=== PATIENT | female | born 1970 | race Caucasian/White ===

== ENCOUNTER 2017-11-15 11:54 | Emergency (ER) | payer OTHER ==
[2017-11-15 12:52] VITALS: BP 119/70
--- NOTE | 2017-11-15 12:55 | UC ---
FLU HPI - HPI Summary HPI Summary: 47 y/o female presents to the urgent care c/o body aches, sore throat, dry cough since Wednesday11/12/2017. Pt reports sore throat is resolving. However she developed 2 episodes of bile vomiting. Mild TOLEDO, back pain, chills and sweats. On sure of fever. she took Ibuprofen 800mg PO yesterday and her sore throat improved. She has not taking the flu vaccine lately. Pt denies fever, SOB, chest pain, diarrhea, abdominal pain, urinary problems. - History of Current Complaint Chief Complaint: UCGeneralIllness Stated Complaint: ACHY VOMITING BACK/CHEST TIGHTNESS Time Seen by Provider: 11/15/17 12:42 Hx Obtained From: Patient Hx Last Menstrual Period: 08/24/16 ?: No Onset/Duration: Gradual Onset, Lasting Days - 4 days, Still Present, Worse Since - today Severity Currently: Mild Severity Initially: Moderate Pain Intensity: 4 Pain Scale Used: 0-10 Numeric Associated Signs & Symptoms: Positive: Fever, Myalgia, Sore Throat, Nasal Congestion, Headache, Vomiting - Risk Factors Influenza Risk Factors: Negative, Age Under 19 y/o Combined w/skilled nursing ASA Therapy - Allergy/Home Medications Allergies/Adverse Reactions: Allergies Allergy/AdvReac Type Severity Reaction Status Date / Time Vancomycin Allergy Itching Verified 11/15/17 12:44 PMH/Surg Hx/FS Hx/Imm Hx Previously Healthy: Yes Endocrine History: Dyslipidemia Respiratory History: Asthma - controlled - Surgical History Surgical History: Yes Surgery Procedure, Year, and Place: appy. partial hysterectomy - Family History Known Family History: Positive: Hypertension, Diabetes Family History: Dyslipiemia - Social History Alcohol Use: Occasionally Substance Use Type: None Smoking Status (MU): Light Every Day Tobacco Smoker Type: Cigarettes Amount Used/How Often: occasional- none past 5 days Length of Time of Smoking/Using Tobacco: 1/2 PPD Household Exposure Type: Cigarettes - Immunization History Most Recent Influenza Vaccination: not this season Review of Systems Constitutional: Fever, Fatigue, Other - body aches Skin: Negative Eyes: Negative ENT: Sore Throat, Nasal Discharge, Sinus Congestion Respiratory: Cough Cardiovascular: Negative Gastrointestinal: Negative Genitourinary: Negative Motor: Negative Neurovascular: Negative Musculoskeletal: Negative Neurological: Headache Psychological: Negative Is Patient Immunocompromised?: No All Other Systems Reviewed And Are Negative: Yes Physical Exam Triage Information Reviewed: Yes Vital Signs: Initial Vital Signs Temp 98.6 F 11/15/17 12:45 Pulse 82 11/15/17 12:45 Resp 18 11/15/17 12:45 BP 119/70 11/15/17 12:45 Pulse Ox 100 11/15/17 12:45 - Additional Comments VITAL SIGNS: Reviewed. GENERAL: Patient is a well developed and nourished female who is sitting comfortable in the examining table. Patient is not in any acute respiratory distress. HEAD AND FACE: No signs of trauma. No ecchymosis, hematomas or skull depressions. No sinus tenderness. EYES: PERRLA, EOMI x 2, No injected conjunctiva, no nystagmus. No photophobia. EARS: Hearing grossly intact. Ear canals and tympanic membranes are within normal limits. Nose: edematous and erythematous nasal mucosa with clear nasal discharge MOUTH: Positive pharynx with erythema, no exudates, no palatal petechiae. NO B/ L tonsillar enlargement with exudate. Uvula in midline. NECK: Supple, trachea is midline, Positive anterior cervical lymphadenopathy, no JVD, no carotid bruit, no c-spine tenderness, neck with full ROM. No meningeal signs, no Kernig's or brudzinskis signs. CHEST: Symmetric, no tenderness at palpation LUNGS: Clear to auscultation bilaterally. No wheezing or crackles. CVS: Regular rate and rhythm, S1 and S2 present, no murmurs or gallops appreciated. ABDOMEN: Soft, non-tender. No signs of distention. No rebound no guarding, and no masses palpated. Bowel sounds are normal. EXTREMITIES: FROM in all major joints, no edema, no cyanosis or clubbing. NEURO: Alert and oriented x 3. No acute neurological deficits. Speech is normal and follows commands. SKIN: Dry and warm Flu Course/Dx - Course Course Of Treatment: 47 y/o female presents to the urgent care c/o body aches, sore throat, dry cough since Wednesday11/12/2017. Pt reports sore throat is resolving. However she developed 2 episodes of bile vomiting. Mild TOL[place]O, back pain, chills and sweats. On sure of fever. she took Ibuprofen 800mg PO yesterday and her sore throat improved. She has not taking the flu vaccine lately. Pt denies fever, SOB, chest pain, diarrhea, abdominal pain, urinary problems. Hx obtained. Pt with a viral syndrome on examination. Influenza A&B ordered: result: negative. Rx ibuprofen PO ans Sofran PO to alleviates symptoms. Advised on hand washing . Pt advised to rest, increase fluid intake, eat well and avoid strenuous exercise. If symptoms do not improve or worsen advised to return to the urgent care or f/u with her PCP for further evaluation and treatment. Pt understood and agreed with plan of care. - Differential Dx/Diagnosis Differential Diagnosis/HQI/PQRI: Broncholiolitis, Influenza, Pneumonia, Upper Respiratory Infection Provider Diagnoses: 1- viral syndrome. 2- Acute Nausea and vomiting Discharge - Discharge Plan Condition: Stable Disposition: HOME Prescriptions: Ibuprofen TAB* [Motrin TAB* 800 MG] 800 mg PO Q6H PRN #20 tab PRN Reason: Pain Ondansetron ODT TAB* [Zofran 4 MG Odt TAB*] 4 mg PO Q6H PRN #12 tab.odt PRN Reason: Vomiting Patient Education Materials: Acute Nausea and Vomiting (ED), Viral Syndrome (ED ) Forms: *Work Release Referrals: Alyson Lynch MD [Primary Care Provider] - 2 Days Additional Instructions: 1- Please take the Zofran PO if you continue with nausea and vomiting. 2-Please take ibuprofen PO q6-8hrs prn as instructed after meals to alleviate pain and swelling. Increase fluid intake, eat well, rest and avoid strenuous exercise 3-If symptoms do not improve or worsen please return to the urgent care or f/u with your PCP for further evaluation and treatment. 4-If you develop severe vomiting and fever please go immediately to the ER for further management
== END 2017-11-15 13:36 | disposition home or self-care (01) ==
LOC: UCCORT 11:54
DX: B34.9 Viral infection, unspecified (principal); R11.2 Nausea with vomiting, unspecified; Z72.89 Other problems related to lifestyle; Z72.0 Tobacco use; Z77.22 Contact with and (suspected) exposure to environmental tobacco smoke (acute) (chronic)
CPT/HCPCS: 87502; 99212; G0463

== ENCOUNTER 2017-11-27 09:40 | Emergency (ER) | payer OTHER ==
[2017-11-27 10:59] VITALS: BP 116/76
--- NOTE | 2017-11-27 11:19 | UC ---
UC General HPI - History of Current Complaint Chief Complaint: UCGeneralIllness Stated Complaint: CHEST CONGESTION, COUGH Time Seen by Provider: 11/27/17 11:03 Hx Obtained From: Patient Hx Last Menstrual Period: 08/24/16 Onset/Duration: Sudden Onset, Lasting Weeks Timing: Constant Onset Severity: Moderate Current Severity: Moderate Pain Intensity: 7 Associated Signs & Symptoms: Positive: Back Pain, Headache, Wheezing - Allergy/Home Medications Allergies/Adverse Reactions: Allergies Allergy/AdvReac Type Severity Reaction Status Date / Time vancomycin Allergy Itching Verified 11/27/17 10:58 PMH/Surg Hx/FS Hx/Imm Hx Previously Healthy: Yes - Surgical History Surgical History: Yes Surgery Procedure, Year, and Place: Partial Hysterectomy, 2016, [place]; Appendectomy, ~1986, [place] - Family History Known Family History: Positive: Hypertension, Diabetes Family History: Dyslipiemia - Social History Alcohol Use: Occasionally Substance Use Type: None Smoking Status (MU): Light Every Day Tobacco Smoker Type: Cigarettes Amount Used/How Often: <1/2 PPD Length of Time of Smoking/Using Tobacco: Since Age 23 Household Exposure Type: Cigarettes - Immunization History Most Recent Influenza Vaccination: not this season Review of Systems Skin: Negative Eyes: Negative ENT: Negative Respiratory: Cough Cardiovascular: Negative Gastrointestinal: Negative Motor: Negative Neurovascular: Negative Musculoskeletal: Arthralgia, Myalgia Neurological: Headache Psychological: Negative Is Patient Immunocompromised?: No All Other Systems Reviewed And Are Negative: Yes Physical Exam Triage Information Reviewed: Yes Appearance: Well-Nourished, Ill-Appearing, Pain Distress Vital Signs: Initial Vital Signs Temp 99 F 11/27/17 10:51 Pulse 74 11/27/17 10:51 Resp 16 11/27/17 10:51 BP 116/76 11/27/17 10:51 Pulse Ox 100 11/27/17 10:51 Vital Signs Reviewed: Yes Eye Exam: Normal ENT Exam: Normal ENT: Positive: Pharynx normal, TM bulging Dental Exam: Normal Neck exam: Normal Neck: Positive: Supple, Nontender, No Lymphadenopathy Respiratory: Positive: Chest non-tender, Normal breath sounds, No respiratory distress, No accessory muscle use, Wheezing, Inspiration Cardiovascular Exam: Normal Cardiovascular: Positive: RRR, No Murmur, Pulses Normal Abdominal Exam: Normal Abdomen Description: Positive: Nontender, No Organomegaly, Soft Bowel Sounds: Positive: Present Musculoskeletal Exam: Normal Musculoskeletal: Positive: Strength Intact, ROM Intact, No Edema Neurological Exam: Normal Neurological: Positive: Alert, Muscle Tone Normal Psychological Exam: Normal Skin Exam: Normal Course/Dx - Course Course Of Treatment: hx obtained, exam performed, meds reviewed, treated fo symtpoms, viral syndromes - Differential Dx - Multi-Symptom Provider Diagnoses: viral syndrome, myalgia, TOLEDO Discharge - Discharge Plan Condition: Stable Disposition: HOME Prescriptions: Cyclobenzaprine TAB* [Flexeril 10 MG TAB*] 10 mg PO TID PRN #21 tab PRN Reason: Spasms predniSONE TAB* [Deltasone TAB*] 40 mg PO DAILY #14 tab Patient Education Materials: Viral Syndrome in Children (ED) Referrals: Alyson Lynch MD [Primary Care Provider] - Additional Instructions: 1. increase fluid intake and rest 2. Take the medication as prescribed. 3. Use 400 mg of ibuprofen at a time.
== END 2017-11-27 11:34 | disposition home or self-care (01) ==
LOC: UCCORT 09:40
DX: B34.9 Viral infection, unspecified (principal); M79.1 Myalgia; R51 Headache; Z11.4 Encounter for screening for human immunodeficiency virus [HIV]; Z72.89 Other problems related to lifestyle; Z72.0 Tobacco use
CPT/HCPCS: 36415; 86703; 99212; G0463

== ENCOUNTER 2018-01-08 21:00 | Emergency (ER) | payer OTHER ==
[2018-01-08 21:19] VITALS: BP 137/74
[2018-01-08] MEDS ORDERED: cefTRIAXone(*) 1 GM in NS 0.9% 50 ML* 50 ML IVPB ONE (21:32)
[2018-01-08] MEDS ORDERED: Lidocaine 1% MPF* 2 ML VIAL INJ ONE (21:33)
[2018-01-08] MEDS ORDERED: cefTRIAXone VIAL(*) 1,000 MG VIAL IM ONE (21:38)
--- NOTE | 2018-01-08 21:45 | UC ---
Complaint Female HPI - HPI Summary HPI Summary: 47 yo WF c/o right LBP today associated with improving dysuria, urgency and frequency x few days, was at work as a hotel lobby concierge at [employer] and her bosses brought her over to because she was not feeling well - History Of Current Complaint Chief Complaint: UCGU Stated Complaint: URINARY Time Seen by Provider: 01/08/18 21:18 Hx Obtained From: Patient Hx Last Menstrual Period: 08/24/16 ?: No Onset/Duration: Sudden Onset, Still Present Timing: Lasting Days Severity Initially: Moderate Severity Currently: Moderate Pain Intensity: 6 - Allergies/Home Medications Allergies/Adverse Reactions: Allergies Allergy/AdvReac Type Severity Reaction Status Date / Time vancomycin Allergy Itching Verified 11/27/17 10:58 Home Medications: Home Medications Acetaminophen TAB* [Tylenol TAB*] 975 mg PO Q6H PRN 01/08/18 [History Confirmed 01/08/18] Cranberry Conc/C/Bacill Coag [Cranberry Tablet] 2 each PO DAILY PRN 01/08/18 [ History Confirmed 01/08/18] Ibuprofen TAB* [Advil TAB*] 600 mg PO Q6H PRN 01/08/18 [History Confirmed ] Phenazopyridine HCl [Urinary Pain Relief] 95 mg PO DAILY PRN 01/08/18 [History Confirmed 01/08/18] PMH/Surg Hx/FS Hx/Imm Hx - Additional Past Medical History Additional PMH: none Previously Healthy: Yes - Surgical History Surgical History: Yes Surgery Procedure, Year, and Place: Partial Hysterectomy, [place]; Appendectomy, ~ [place] - Family History Known Family History: Positive: Hypertension, Diabetes Family History: Dyslipiemia - Social History Alcohol Use: Weekly Substance Use Type: None Smoking Status (MU): Light Every Day Tobacco Smoker Type: Cigarettes Amount Used/How Often: <1/2 PPD Length of Time of Smoking/Using Tobacco: Since Age 23 Household Exposure Type: Cigarettes - Immunization History Most Recent Influenza Vaccination: not this season Review of Systems Constitutional: Chills Skin: Negative Eyes: Negative ENT: Negative Respiratory: Negative Cardiovascular: Negative Gastrointestinal: Negative Genitourinary: Dysuria, Other - right flank and LBP Motor: Negative Neurovascular: Negative Musculoskeletal: Negative Neurological: Negative Psychological: Negative All Other Systems Reviewed And Are Negative: Yes Physical Exam Triage Information Reviewed: Yes Vital Signs: Initial Vital Signs Temp 36.9 C 01/08/18 21:11 Pulse 87 01/08/18 21:11 Resp 22 01/08/18 21:11 BP 137/74 01/08/18 21:11 Pulse Ox 99 01/08/18 21:11 Eye Exam: Normal ENT Exam: Normal Dental Exam: Normal Neck exam: Normal Neck: Positive: 1 Respiratory Exam: Normal Cardiovascular Exam: Normal Abdominal Exam: Normal Abdomen Description: Positive: CVA Tenderness (R) Musculoskeletal Exam: Normal Neurological Exam: Normal Psychological Exam: Normal Skin Exam: Normal Complaint Female Dx - Course Course Of Treatment: UA could not be done due to pt taking Azo so urine cx sent. Clinically pt appears to be progressing to ascending UTI to kidneys given chills and Right CVA tenderness. Will load pt up with IM Rocephin 1g then continue with PO bactrim DS BID x 10 days starting tomorrow - Differential Dx/Diagnosis Provider Diagnoses: ascending UTI Discharge - Discharge Plan Condition: Stable Disposition: HOME Prescriptions: Sulfamethox/Trimethoprim DS* [Bactrim DS 800/160 TAB*] 1 tab PO BID 10 Days #20 tab Patient Education Materials: Urinary Tract Infection in Women (DC) Referrals: Alyson Lynch MD [Primary Care Provider] - Additional Instructions: go to ER if fever, chills or low back pain worsens
== END 2018-01-08 22:01 | disposition home or self-care (01) ==
LOC: UCCORT 21:00
DX: N39.0 Urinary tract infection, site not specified (principal); Z88.1 Allergy status to other antibiotic agents; F17.210 Nicotine dependence, cigarettes, uncomplicated
CPT/HCPCS: 87086; 96372; 99212; G0463; J0696

== ENCOUNTER 2019-11-21 18:09 | Emergency (ER) | payer OTHER ==
--- NOTE | 2019-11-21 19:13 | UC ---
Dizzy HPI HPI Summary: The patient is a 49 yo female here for the evaluation of a near syncopal episode It occurred about 2 PM today while showering [place] things tunneling in on her sat and rested felt better and went into work coworker sent her home telling her she needed to seek care Went to clinic at [facility] and was sent to [facility] ER She was told she had at least a 4 hour wait A friend brought her here. 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 She has had intermittent epigastric discomfort x weeks She has Chronic/daily diarrhea which has been unchanged x years no wt loss She states she was seen at [facility] 2 mos ago for chest pain and had an extensive work up which was negative - History Of Current Complaint Chief Complaint: UCGeneralIllness Stated Complaint: LIGHT HEADED/LEFT ARM PAIN AND TINGLING Time Seen by Provider: 11/21/19 18:22 Hx Obtained From: Patient Hx Last Menstrual Period: 08/24/16 Onset/Duration: Sudden Onset, Lasting Minutes Timing: Constant Severity Initially: Severe Severity Currently: Mild Pain Intensity: 0 Pain Scale Used: 0-10 Numeric Character: Lightheaded, Weak, Dizzy Aggravating Factor(s): Nothing Alleviating Factor(s): Rest Associated Signs And Symptoms: Negative: Nausea, Vomiting, Diaphoresis, Tinnitus , Chest Pain, SOB, Palpitations, Unsteady Gait, Visual Changes, Decreased Oral Intake, Change In Medication, Change In Diet - Allergies/Home Medications Allergies/Adverse Reactions: Allergies Allergy/AdvReac Type Severity Reaction Status Date / Time vancomycin Allergy Itching Verified 11/21/19 18:20 Home Medications: Home Medications Loperamide HCl [Imodium A-D] 1 dose PO ONCE 11/21/19 [History Confirmed 11/21/19 ] Naproxen Sodium [Aleve] 1 tab PO ONCE 11/21/19 [History Confirmed 11/21/19] PMH/Surg Hx/FS Hx/Imm Hx Previously Healthy: Yes - Chronic LBP- takes NSAIDs - Surgical History Surgical History: Yes Surgery Procedure, Year, and Place: Partial Hysterectomy, 2016, ; Appendectomy, ~1986, - Family History Known Family History: Positive: Hypertension, Diabetes Family History: Dyslipiemia - Social History Alcohol Use: Weekly Substance Use Type: None Smoking Status (MU): Light Every Day Tobacco Smoker Type: Cigarettes Amount Used/How Often: <1/2 PPD Length of Time of Smoking/Using Tobacco: Since Age 23 Household Exposure Type: Cigarettes - Immunization History Most Recent Influenza Vaccination: not this season Review of Systems All Other Systems Reviewed And Are Negative: Yes Constitutional: Positive: Negative Skin: Positive: Negative Eyes: Positive: Negative ENT: Positive: Negative Respiratory: Positive: Negative Cardiovascular: Positive: Negative Gastrointestinal: Positive: Abdominal Pain - mild epigastric discomfort x days, Diarrhea - chronic Genitourinary: Positive: Negative Motor: Positive: Weakness - left arm Neurovascular: Positive: Negative Musculoskeletal: Positive: Negative Neurological: Positive: Headache - mild, Numbness - left arm Physical Exam Triage Information Reviewed: Yes Appearance: Well-Appearing, No Pain Distress, Well-Nourished Vital Signs: Initial Vital Signs Temp 97 F 11/21/19 18:15 Pulse 68 11/21/19 18:15 Resp 15 11/21/19 18:15 BP 160/87 11/21/19 18:15 Pulse Ox 100 11/21/19 18:15 Vital Signs Reviewed: Yes Eyes: Positive: Conjunctiva Clear, Other: - EOMI/PERRL ENT: Positive: Hearing grossly normal, Pharynx normal, TMs normal, Uvula midline , Other - mild TMJ tenderness. Negative: Nasal congestion, Nasal drainage, Tonsillar swelling, Tonsillar exudate, Trismus, Muffled voice, Hoarse voice, Sinus tenderness Neck: Positive: Supple, Other: - sleght left Trap tenderness Respiratory: Positive: Lungs clear, Normal breath sounds, No respiratory distress, No accessory muscle use Cardiovascular: Positive: RRR, No Murmur Abdomen Description: Positive: Soft. Negative: Nontender - RUQ tenderness, CVA Tenderness (R), CVA Tenderness (L) Bowel Sounds: Positive: Present Musculoskeletal: Positive: ROM Intact Neurological: Positive: Alert, Other: - cn2-12 intact, slight decrease strenght left upper ext, no pronator drift, reflexes symmetrical, normal gait, neg rhomberg Psychological Exam: Normal Skin Exam: Normal Diagnostics - Radiology No standard instances Radiology Interpretation Completed By: Radiologist Summary of Radiographic Findings: CT C-S :1. There is mild disc height loss and endplate degenerative spurring at C5-C6 and C6-C7 consistent with degenerative disc disease with additional uncinate process DJD at C5-C6. 2. There is mild right and moderate left C5-C6 and mild right C6-C7 neural foraminal stenosis. CT Brain: Neg - EKG Cardiac Rate: NL Cardiac Rhythm: Sinus: Normal Ectopy: None ST Segment: Normal Dizzy Course/Dx - Differential Dx/Diagnosis Provider Diagnosis: Near syncope, Cervical radiculopathy Discharge ED - Sign-Out/Discharge Documenting (check all that apply): Patient Departure All imaging exams completed and their final reports reviewed: Yes - Discharge Plan Condition: Stable Disposition: HOME Patient Education Materials: Near Syncope (ED) Referrals: Alyson Lynch MD [Primary Care Provider] - - Billing Disposition and Condition Condition: STABLE Disposition: Home
[2019-11-21 20:37] VITALS: BP 133/64
[2019-11-22 11:18] LABS: ABS Basophils 0.1 10^3/ul (0-0.2); ABS Monocytes 0.5 10^3/ul (0-0.8); ABS Neutrophils 4.5 10^3/ul (1.5-7.7); Eosinophil % 0.5 %; Hematocrit 40 % (35-47); Hemoglobin 13.6 g/dL (12.0-16.0); Lymphocyte % 27.8 %; Mean Corpuscular HGB Conc 34 g/dL (31-36); Mean Corpuscular Hemoglobin 34 pg (27-31); Mean Corpuscular Volume 99 fL (80-97); Mean Platelet Volume 8.2 fL (7.4-10.4); Platelet Count 321 10^3/uL (150-450); Red Blood Count 4.03 10^6 /uL (3.70-4.87); Red Cell Distribution Width 13 % (10-15); White Blood Count 7.1 10^3/uL (3.5-10.8)
[2019-11-22 11:25] LABS: Albumin 4.6 g/dL (3.2-5.2); Calcium 9.9 mg/dL (8.6-10.3); Potassium 3.9 mmol/L (3.5-5.0); Total Bilirubin 0.7 mg/dL (0.2-1.0)
[2019-11-22 11:31] LABS: Albumin/Globulin Ratio 2.1 (1-3); EGFR African American 149.6 (>60); EGFR Non-African American 123.6 (>60); Globulin 2.2 g/dL (2-4); Total Protein 6.8 g/dL (6.4-8.9)
[2019-11-22 12:26] LABS: TSH (Thyroid Stimulating Horm) 1.2 mcIU/mL (0.34-5.60)
== END 2019-11-21 21:19 | disposition home or self-care (01) ==
LOC: UCCORT 18:09
DX: M54.12 Radiculopathy, cervical region (principal); R55 Syncope and collapse; M54.5 Low back pain; G89.29 Other chronic pain; R10.9 Unspecified abdominal pain; R19.7 Diarrhea, unspecified; R51 Headache; R20.0 Anesthesia of skin; Z79.1 Long term (current) use of non-steroidal anti-inflammatories (NSAID); Z88.1 Allergy status to other antibiotic agents; F17.210 Nicotine dependence, cigarettes, uncomplicated
CPT/HCPCS: 36415; 70450; 72125; 80053; 84443; 85025; 86038; 93005; 99212; G0463

== ENCOUNTER 2019-12-30 21:00 | Emergency (ER) | payer OTHER ==
--- OUTSIDE RECORDS SUMMARY | 2019-12-30 21:08 | XMS REPORT | Continuity of Care Document ---
:1970 External Reference #:[id number] Author Name Tara Nelson FNP Address [address] [place] [id number] Care Team Providers Name Role Phone Tara Nelson CARTOON ARTIST - Nurse Care Team Information Foreign Legal Consultant Practitioner Problems Active Problems Provider Date Single major depressive episode Jojo Crandall MD Onset: 05/23/2012 Tobacco user Yamila Bush MD Onset: 07/31/2015 Lumbar radiculopathy Tara Nelson FNP Onset: 09/29/2018 Right side sciatica Tara Nelson FNP Onset: 09/29/2018 Low back pain Nancy Gordillo MD Onset: 11/11/2018 Myalgia, unspecified site Nancy Gordillo MD Onset: 11/11/2018 Chest pain Nishant Sullivan M.D., [facility] Onset: 05/01/2019 Electrocardiogram abnormal Nishant Sullivan M.D., [facility] Onset: 05/01/2019 Counseling about tobacco use Nishant Sullivan M.D., [facility] Onset: 2018 Dysplastic nevus of skin Tara Nelson FNP Onset: 05/17/2019 Note: Document: 05/17/19 - Thoracic Spine-Shave Biopsy Re - removed derm Cervical radiculopathy Tara Nelson FNP Onset: 11/29/2019 Social History Type Date Description Comments Sex Unknown Tobacco Use Reviewed: 03/15/19 currently smokes 1/2 Pack Daily x 19 yrs ETOH Use Currently consumes alcohol socially Tobacco Use Reviewed: 11/29/19 Patient is a current smoker, smokes 3 cigarettes every day Smoking Status Reviewed: 11/29/19 Patient is a current smoker, smokes 3 cigarettes every day Allergies, Adverse Reactions, Alerts Active Allergies Reaction Severity Comments Date Vancomycin 11/15/2012 Inactive Allergies NKDA 10/07/2011 Medications Active Medications SIG Qnty Indications Ordering Provider Date Allergy one PO qd 90tabs J30.9 Tara Nelson, 11/29/2019 10mg Tablets HEALTH CARE MARKETING SPECIALIST History Medications No Active Medications Unknown 11/29/2019 - 11/29/2019 Augmentin 1 by mouth 20tabs J01.90 Leslie, 06/29/2019 - 500-125mg twice a day Tara, 07/09/2019 Tablets HEALTH CARE MARKETING SPECIALIST Immunizations CPT Code Status Date Vaccine Lot # [id number] Given 12/01/2012 flu vaccination 55211 Given 10/23/2011 Pneumovax Injection 28274 Given 10/23/2011 Pneumococcal Conjugate Vaccine 13 Valent For Intramuscular Use 59198 Given 10/23/2011 flu vaccination 63299 Given 10/07/2010 flu vaccination Vital Signs Date Vital Result Comment 11/29/2019 10:39am BP Systolic 151 mmHg BP Diastolic 83 mmHg Body Temperature 98.2 F Heart Rate 95 /min Respiratory Rate 18 /min Height 63 inches 5'3" Weight 170.38 lb BMI (Body Mass Index) 30.2 kg/m2 BSA (Body Surface Area) 1.[address] body weight in kilograms 52 kg O2 % BldC Oximetry 98 % Ra 06/29/2019 3:10pm BP Systolic 116 mmHg BP Diastolic 60 mmHg Body Temperature 97.6 F Heart Rate 75 /min Respiratory Rate 18 /min Weight 170.00 lb O2 % BldC Oximetry 98 % Results Description No Information Available Procedures Date Code Description Status 06/15/2019 07421 Echocardiogram Complete Completed 06/15/2019 19439 Stress Test Interpre And Report Only Completed 06/15/2019 76528 Stress Test Physician Super Only Completed 02/09/2019 [id number] Mammogram Completed Medical Devices Description No Information Available Encounters Type Date Location Provider Dx Diagnosis Office Visit 11/29/2019 Family Medicine Leslie, R55 Syncope and 10:[address] PEDRO Pacheco collapse M54.12 Radiculopathy, cervical region J30.9 Allergic rhinitis, unspecified R03.0 Elevated blood-pressure reading, w/o diagnosis of htn Office Visit 06/29/2019 Family Leslie, J01.90 Acute sinusitis, 3:15p [facility] [place], HEALTH CARE MARKETING SPECIALIST unspecified RD R51 Headache Assessments Date Code Description Provider 11/29/2019 R55 Syncope and collapse Tara Nelson [facility] 11/29/2019 M54.12 Radiculopathy, cervical region Tara Nelson, [facility] 11/29/2019 J30.9 Allergic rhinitis, unspecified Tara Nelson, [facility] 11/29/2019 R03.0 Elevated blood-pressure reading, Tara Nelson FNP without diagnosis of hypertension 06/29/2019 J01.90 Acute sinusitis, unspecified Tara Nelson, [facility] 06/29/2019 R51 Headache Tara Nelson, [facility] 06/15/2019 R07.9 Chest pain, unspecified Nishant Sullivan M.D., [facility] Plan of Treatment 11/29/2019 - Tara Nelson, [id number] Syncope and collapseComments:Have had previous cardiac work up - could consider carotid U/S but declinedDiscussed could be orthostatic issue, or vaso vagal response conitnue to monitor. If it happens again, would consider U/S +/or possible neuro referralFollow up:as znirivC74.12 Radiculopathy, cervical regionComments:OK to seek transition of care specialist - encouraged to see if they would like a copy of your recent x- rayscontinue w/NSAIDs (Ibuprofen, naproxen) as needed for painJ30.9 Allergic rhinitis, unspecifiedNew Medication:Allergy 10 mg - one PO qdComments:Discussed use of over the counter allergy medication - fexofenadine, loratadine or cetirizine Could consider addition of Nasonex or Flonase nasal ejvlkZ31.0 Elevated blood-pressure reading, without diagnosis of hypertensionComments:will continue to monitor Functional Status Functional Condition Comment Date Status Independent with all ADL's Active Mental Status Description No Information Available Referrals Description No Information Available
[2019-12-30 21:12] VITALS: BP 140/88
[2019-12-30] MEDS ORDERED: diPHENhydraMINE PO* 25 MG PO ONE (22:04)
--- NOTE | 2019-12-30 22:11 | ED ---
Throat Pain/Nasal Congestion - HPI Summary HPI Summary: 49 yo WF presents for throat irritation and mildly hoarse voice x 4 days, denies f/c/cough and wants throat "checked" for thrush. - History of Current Complaint Chief Complaint: UCGeneralIllness Time Seen by Provider: 12/30/19 21:08 Hx Obtained From: Patient Onset/Duration: Sudden Onset Severity: Moderate Associated Signs And Symptoms: Positive: Negative Cough: None Related History: Seasonal Allergies - Allergies/Home Medications Allergies/Adverse Reactions: Allergies Allergy/AdvReac Type Severity Reaction Status Date / Time vancomycin Allergy Itching Verified 12/30/19 21:13 Home Medications: Home Medications Naproxen Sodium [Aleve] 1 tab PO ONCE 11/21/19 [History Confirmed 12/30/19] Fexofenadine/Pseudoephedrine [Fexofenadine-Pse ER 60-120 Tab] 1 each PO BID 7 Days #14 tab.er.12h 12/30/19 [Rx] PMH/Surg Hx/FS Hx/Imm Hx Previously Healthy: Yes - Surgical History Surgery Procedure, Year, and Place: Partial Hysterectomy, 2016, [place]; Appendectomy, ~1986, [place] Infectious Disease History: No Infectious Disease History: Denies: Traveled Outside the [place] in Last 30 Days - Family History Known Family History: Positive: Hypertension, Diabetes, Non-Contributory Family History: Dyslipiemia - Social History Alcohol Use: Weekly Substance Use Type: Reports: None Smoking Status (MU): Light Every Day Tobacco Smoker Type: Cigarettes Amount Used/How Often: <1/2 PPD Length of Time of Smoking/Using Tobacco: Since Age 23 Review of Systems Constitutional: Negative Eyes: Negative Positive: Sore Throat, Other - post nasal drip Cardiovascular: Negative Respiratory: Negative Negative: Shortness Of Breath, Cough Gastrointestinal: Negative Genitourinary: Negative Musculoskeletal: Negative Skin: Negative Neurological/Mental Status: Negative Psychological: Normal All Other Systems Reviewed And Are Negative: Yes Physical Exam - Summary Physical Exam Summary: Vital Signs Reviewed: Yes Appearance: Positive: No Pain Distress Skin: Positive: Warm Head/Face: Positive: Normal Head/Face Inspection Eyes: Positive: Normal ENT: Positive: mild pharyngeal erythema w/o exudates Dental: Negative: Cervical Lymphadenopathy Neck: Positive: Supple Respiratory/Lung Sounds: Positive: Clear to Auscultation Cardiovascular: Positive: Normal, RRR, S1, S2 Abdomen Description: Positive: Nontender Musculoskeletal: Positive: Normal Neurological: Positive: Normal Psychiatric: Positive: Normal Vital Signs On Initial Exam: Initial Vitals Temp Pulse Resp BP Pulse Ox 37.1 C 87 16 140/88 99 12/30/19 21:08 12/30/19 21:08 12/30/19 21:08 12/30/19 21:08 12/30/19 21:08 Diagnostics - Vital Signs Vital Signs Temp Pulse Resp BP Pulse Ox 12/30/19 21:08 37.1 C 87 16 140/88 99 - Laboratory Lab Results: Lab Results 12/30/19 Range/Units 21:16 Group A Strep Rapid Negative (Negative) Lab Statement: Any lab studies that have been ordered have been reviewed, and results considered in the medical decision making process. EENT Course/Dx - Course Assessment/Plan: rapid strep neg - Diagnoses Provider Diagnoses: PND (post-nasal drip) Discharge ED - Sign-Out/Discharge Documenting (check all that apply): Patient Departure All imaging exams completed and their final reports reviewed: No Studies - Discharge Plan Condition: Stable Disposition: HOME Prescriptions: Fexofenadine/Pseudoephedrine [Fexofenadine-Pse ER 60-120 Tab] 1 each PO BID 7 Days #14 tab.er.12h Patient Education Materials: Fexofenadine/Pseudoephedrine (By mouth), Postnasal Drip (DC) Referrals: Ria Nelson NP [Primary Care Provider] - - Billing Disposition and Condition Condition: STABLE Disposition: Home
== END 2019-12-30 22:12 | disposition home or self-care (01) ==
LOC: UCCORT 21:00
DX: R09.82 Postnasal drip (principal); J02.9 Acute pharyngitis, unspecified; F17.210 Nicotine dependence, cigarettes, uncomplicated; Z88.1 Allergy status to other antibiotic agents
CPT/HCPCS: 87651; 99212; A9270-GY; G0463